=== PATIENT | female | born 1980 | race African-American/Black ===

== ENCOUNTER 2017-03-18 01:33 | Emergency (ER) | payer SELFPAY ==
[~2017-03-18] VITALS: Ht 152.4 cm; Wt 68.0 kg
[2017-03-18 04:53] LABS: CLARITY URINE CLOUDY (CLEAR); COLOR URINE YELLOW (YELLOW); GLUCOSE URINE NEGATIVE (NEGATIVE); KETONES URINE TRACE (NEGATIVE); LEUKOCYTE ESTERASE URINE 1+ (NEGATIVE); NITRITE URINE POSITIVE (NEGATIVE); OCCULT BLOOD URINE 3+ (NEGATIVE); PH URINE 5.5 (4.5-8.0); PROTEIN URINE 1+ (NEGATIVE); SPECIFIC GRAVITY URINE 1.021 (1.005-1.030); UROBILINOGEN URINE 0.2 E.U./dL (0.2-1.0)
[2017-03-18] MEDS ORDERED: KETOROLAC 60MG/2ML VIAL IM ONE (05:00)
[2017-03-18 05:34] VITALS: BP 117/73
== END 2017-03-18 05:35 | disposition home or self-care (01) ==
LOC: ER 01:35
DX: N39.0 Urinary tract infection, site not specified (principal); Z88.1 Allergy status to other antibiotic agents
CPT/HCPCS: 81001; 81025; 96372; 99283; J1885